=== PATIENT | female | born 1990 | race Caucasian/White ===

== ENCOUNTER 2025-02-22 10:20 | Emergency (ER) | payer OTHER, SELFPAY ==
[2025-02-22] VITALS (12 sets, daily range): BP systolic 115–137; BP diastolic 65–92; PULSE 74–88; RESP 16–27; TEMP 36.8; O2SAT 95–99; BMI 26.6
--- NOTE | 2025-02-22 11:11 | RT ---
Called to [facility] in [facility], pt airway patent and on room air. No distress noted
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
[2025-02-22] MEDS: KETOROLAC 30 MG/ML VIAL 15 MG IV (12:58)
[2025-02-22] MEDS: MORPHINE 4 MG/ML INJ IV (12:58)
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
== END 2025-02-22 14:36 | disposition home or self-care (01) ==
PROVIDERS: Emergency Provider Student in an Organized Health Care Education/Training Program
DX: M54.12 Radiculopathy, cervical region (principal); V40.0XXA Car driver injured in collision with pedestrian or animal in nontraffic accident, initial encounter; Y92.410 Unspecified street and highway as the place of occurrence of the external cause
CPT/HCPCS: 70450; 72128; 72141; 96374; 96375; 99284; J1885; J2272